=== PATIENT | male | born 1995 | race African-American/Black ===

== ENCOUNTER 2017-04-28 04:04 | Emergency (ER) | payer OTHER | END 2017-04-28 04:35 | disposition home or self-care (01) | LOC: ERS 04:04 | DX: T80.89XA Other complications following infusion, transfusion and therapeutic injection, initial encounter (principal); F17.210 Nicotine dependence, cigarettes, uncomplicated | CPT/HCPCS: 99283 ==

== ENCOUNTER 2018-03-27 07:21 | Emergency (ER) | payer OTHER | END 2018-03-27 08:41 | disposition home or self-care (01) | LOC: ERS 07:21 | DX: B00.9 Herpesviral infection, unspecified (principal) | CPT/HCPCS: 99282 ==